=== PATIENT | male | born 1990 | race Two or more races ===

== ENCOUNTER 2017-10-17 04:24 | Inpatient (IN) | payer OTHER ==
[2017-10-17 04:46] LABS: PLATELET COUNT 246 10^3/uL (150-400)
[2017-10-17] MEDS ORDERED: NS 1,000 ML IV ONE (04:49)
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
[2017-10-17 04:54] LABS: INR 1.13 (0.83-1.16); PROTIME(PATIENT) 14.7 SEC (12.0-15.0)
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
[2017-10-17] MEDS ORDERED: ONDANSETRON 4 MG/2 ML VIAL IVP PRN (05:00)
[2017-10-17] MEDS ORDERED: ACETAMINOPHEN 325 MG TAB PO PRN (05:00)
[2017-10-17] MEDS ORDERED: D5W NS 1,000 ML IV SCH (05:00)
[2017-10-17] MEDS ORDERED: IOPAMIDOL (ISOVUE-300) 100 ML BTL ONE (05:23)
[2017-10-17] MEDS ORDERED: ceFAZolin 2 GM/DEXTROSE 100 ML IV ONE (06:00)
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
[2017-10-17] MEDS: IBUPROFEN 600 MG TAB PO SCH ×3 (08:09→22:10)
[2017-10-17] MEDS: BACITRACIN ZINC 14.2 GM OINTTUBE TP SCH ×2 (09:23→22:19)
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
[2017-10-18] MEDS: IBUPROFEN 600 MG TAB PO SCH (05:17)
[2017-10-18 08:43] VITALS: BP 110/74
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
[2017-10-18] MEDS ORDERED: ENOXAPARIN 40 MG/0.4 ML SYR SC SCH (09:00)
[2017-10-18] MEDS: BACITRACIN ZINC 14.2 GM OINTTUBE TP SCH (09:05)
--- NOTE | 2017-10-18 11:25 | ASMTCAGE ---
CAGE Do you feel you ought to Answers: Yes cut down on your drinking or drug use? Do people annoy you by Answers: Yes criticizing your drinking or drug use? Do you feel guilty about Answers: Yes your drinking or drug use? Do you drink or use drugs Answers: Yes first thing in the morning ([employer])? Additional Comments Patient states he is interested in looking into resourcesre: treatment for his alcohol/drug use. CM will provide. Date Signed: 10/18/2017 11:24 AM Electronically Signed By:Nancy Edgar RN
--- NOTE | 2017-10-18 11:38 | ASMTCMCOM ---
CM Note CM Note Notes: Met with patient and parents for discharge planning purposes. Also discussed this case with primary RN. Plan is for patient to likely discharge independently later today - pending clearance from therapy. CAGE screen completed, patient interested in resources for drug/alcohol abuse - CM provided. Also provided resources for Mental Health follow-up per request. CM available should further needs arise. Plan: Independent Date Signed: 10/18/2017 11:37 AM Electronically Signed By:Nancy Edgar RN
--- NOTE | 2017-10-18 11:39 | ASMTLACE ---
RICARDO Length of stay for Answers: 1 day current admission Acuity / Level of Answers: Yes Care: Did the patient have an inpatient admission? # of Emergency department Answers: 1-2 visits in the last 6 months Social determinants Answers: History of substance abuse (ETOH, street drugs, prescription drugs, etc.) History of trauma (PTSD, child abuse, domestic violence, etc.) Score: 11 Date Signed: 10/18/2017 11:39 AM Electronically Signed By:Nancy Edgar RN
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
== END 2017-10-18 12:24 | disposition left against medical advice (07) | DRG 159 ==
LOC: EEVIPCON 05:00 → F3N 08:57
PROVIDERS: ADMIT Surgery; ATTEND Surgery
PROC: 0HQFXZZ Repair Right Hand Skin, External Approach (ICD-10-PCS; principal; 2017-10-17)
PROC: 0HQ1XZZ Repair Face Skin, External Approach (ICD-10-PCS; principal; 2017-10-17)
DX: S02.40FA Zygomatic fracture, left side, initial encounter for closed fracture (principal); S61.411A Laceration without foreign body of right hand, initial encounter; F15.90 Other stimulant use, unspecified, uncomplicated; F12.90 Cannabis use, unspecified, uncomplicated; S01.21XA Laceration without foreign body of nose, initial encounter; S01.411A Laceration without foreign body of right cheek and temporomandibular area, initial encounter; V57.1XXA Passenger in pick-up truck or van injured in collision with fixed or stationary object in nontraffic accident, initial encounter; R40.2421 Glasgow coma scale score 9-12, in the field [EMT or ambulance]
CPT/HCPCS: 80307; G0480; J0690; L3925; Q9967